=== PATIENT | male | born 1965 | race Caucasian/White ===

== ENCOUNTER 2016-06-29 17:31 | Emergency (ER) | payer OTHER ==
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
--- NOTE | 2016-06-29 21:24 | ED ORDER SUMMARY ---
..... Patient: MANI ALMARAZ OrderSheet [facility] VisitID: [id number] [place] [address] 50y, M Registration Date/Time: 06/29/2016 ORDER SHEET Weight: 93.4 kg (stated) Allergies: No Known Drug Allergy GENERAL ORDERS: CT Head wo Cont Urgent (17:42 06/29/2016 Ashley GARCIA) (Ack 17:47 Shay) (18:32 Bennie) CT Cervical Spine wo Cont Urgent (17:42 06/29/2016 Ashley GARCIA) (Ack 17:47 Shay) (18:32 Bennie) CT Thorax/Abd/Pelvis w Cont (No) (do not wait. ) Urgent (17:43 06/29/2016 Ashley GARCIA) (Ack 17:47 Shay) (18:32 Bennie) CBC w Diff Urgent (17:43 06/29/2016 Ashley GARCIA) (Ack 17:47 Shay) (19:03 DDavis R.N.) CMP Urgent (17:43 06/29/2016 Ashley GARCIA) (Ack 17:47 Shay) (19:03 DDavis R.N.) UA-Culture if indicated Urgent (17:43 06/29/2016 Ashley GARCIA) (Ack 17:47 Shay) Lipase Urgent (17:43 06/29/2016 Ashley GARCIA) (Ack 17:47 Shay) (19:03 DDavis R.N.) Urine Drug Screen Urgent (17:43 06/29/2016 Ashley GARCIA) (Ack 17:47 Shay) MEDICATION ORDERS: IV FLUIDS: IV NS : initial bolus none -, then 500 mL/hr for 2h (NOW); Urgent (17:42 06/29/2016 Ashley GARCIA) (17:45 LWhalen R.N.) Zofran IV 4 mg (NOW) (20:07 06/29/2016 Ashley GARCIA) (20:27 DDavis R.N.) Dilaudid IV 0.5 mg + 0.5 mg (NOW) (20:06/29/2016 Ashley GARCIA) (20:28 DDavis R.N.) ORDER SHEET NOTES: [Electronically signed by Mani Nielson R.N. (21:44 06/29/2016)] [Electronically signed by Erik Simon MD (01:05 07/01/2016)] [Electronically locked/signed by Mani Nielson R.N. (21:44 06/29/2016)]
--- NOTE | 2016-06-29 21:24 | ED ORDER SUMMARY ---
..... Patient: MANI ALMARAZ OrderSheet [facility] VisitID: [id number] [place] [address] 50y, M Registration Date/Time: 06/29/2016 ORDER SHEET Weight: 93.4 kg (stated) Allergies: No Known Drug Allergy GENERAL ORDERS: CT Head wo Cont Urgent (17:42 06/29/2016 Ashley GARCIA) (Ack 17:47 Shay) (18:32 Bennie) CT Cervical Spine wo Cont Urgent (17:42 06/29/2016 Ashley GARCIA) (Ack 17:47 Shay) (18:32 Bennie) CT Thorax/Abd/Pelvis w Cont (No) (do not wait. ) Urgent (17:43 06/29/2016 Ashley GARCIA) (Ack 17:47 Shay) (18:32 Bennie) CBC w Diff Urgent (17:43 06/29/2016 Ashley GARCIA) (Ack 17:47 Shay) (19:03 DDavis R.N.) CMP Urgent (17:43 06/29/2016 Ashley GARCIA) (Ack 17:47 Shay) (19:03 DDavis R.N.) UA-Culture if indicated Urgent (17:43 06/29/2016 Ashley GARCIA) (Ack 17:47 Shay) Lipase Urgent (17:43 06/29/2016 Ashley GARCIA) (Ack 17:47 Shay) (19:03 DDavis R.N.) Urine Drug Screen Urgent (17:43 06/29/2016 Ashley GARCIA) (Ack 17:47 Shay) MEDICATION ORDERS: IV FLUIDS: IV NS : initial bolus none -, then 500 mL/hr for 2h (NOW); Urgent (17:42 06/29/2016 Ashley GARCIA) (17:45 LWhalen R.N.) Zofran IV 4 mg (NOW) (20:07 06/29/2016 Ashley GARCIA) (20:27 DDavis R.N.) Dilaudid IV 0.5 mg + 0.5 mg (NOW) (20:06/29/2016 Ashley GARCIA) (20:28 DDavis R.N.) ORDER SHEET NOTES: [Electronically signed by Mani Nielson R.N. (21:44 06/29/2016)] [Electronically signed by Erik Simon MD (01:05 07/01/2016)] [Electronically locked/signed by Mani Nielson R.N. (21:44 06/29/2016)]
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
--- NOTE | 2016-07-01 01:05 | ED MED RECONCILIATION SUMMARY ---
Patient: SHARRON ALMARAZ Medication Reconciliation Report [facility] VisitID: [id number] [address] [place] [address] 50y, M Registration Date/Time: 06/29/2016 Weight: 93.4 kg Height/Length: 72 in. BMI: 28.0 ALLERGIES: No Known Drug Allergy The patient's Home Medications are listed below: NONE. The source(s) of the original Home Medication information: Not obtained. The following Medications were given to the patient in the Emergency Department: IV NS IV Fluids bolus 0, then 999 mL/hr, administered: 06/29/2016 5:45:00 PM Zofran [IVP] IVP 4 mg, administered: 06/29/2016 8:22:00 PM Dilaudid [IVP] IVP 1 mg, administered: 06/29/2016 8:24:00 PM The following Medications were prescribed to the patient: Hydrocodone/APAP take 1-2 orally every 4 hours as needed for pain. Dispense fifteen (15). No refill. -- Erik Simon MD
--- NOTE | 2016-07-01 01:05 | ED MAR SUMMARY ---
..... Medication Administration Record [facility] [address] [place] [address] Patient: SHARRON ALMARAZ Visit ID: [id number] 50y, M Weight: 93.4 kg Height/Length: 72 in BMI: 28 ALLERGIES: No Known Drug Allergy Start 17:45 06/29/2016 Silvia Israel R.N., Stop 21:32 06/29/2016 Sharron Nielson R.N. Medication Administered: IV NS (SALINE), Dose: IV Fluids over 1 hour(s), Rate: 999 mL/hr, Dispensed: 1000 mL bag, Site: #1 left AC. Medication Ordered: IV NS : initial bolus none -, then 500 mL/hr for 2h (NOW); Urgent. Given 20:22 06/29/2016 Sharron Nielson R.N. Medication Administered: ZOFRAN [IVP] (ONDANSETRON HCL), Dose: 4 mg IVP over 1 minute(s), Site: #2 right AC. Medication Ordered: Zofran IV 4 mg (NOW). Given 20:24 06/29/2016 Sharron Nielson R.N. Medication Administered: DILAUDID [IVP] (HYDROMORPHONE HCL PF), Dose: 1 mg IVP over 2 minute(s), Site: #2 right AC. Medication Ordered: Dilaudid IV 0.5 mg + 0.5 mg (NOW).
--- NOTE | 2016-07-01 01:05 | ED MAR SUMMARY ---
..... Medication Administration Record [facility] [address] [address] Patient: SHARRON ALMARAZ Visit ID: [id number] 50y, M Weight: 93.4 kg Height/Length: 72 in BMI: 28 ALLERGIES: No Known Drug Allergy Start 17:45 06/29/2016 Silvia Israel R.N., Stop 21:32 06/29/2016 Sharron Nielson R.N. Medication Administered: IV NS (SALINE), Dose: IV Fluids over 1 hour(s), Rate: 999 mL/hr, Dispensed: 1000 mL bag, Site: #1 left AC. Medication Ordered: IV NS : initial bolus none -, then 500 mL/hr for 2h (NOW); Urgent. Given 20:22 06/29/2016 Sharron Nielson R.N. Medication Administered: ZOFRAN [IVP] (ONDANSETRON HCL), Dose: 4 mg IVP over 1 minute(s), Site: #2 right AC. Medication Ordered: Zofran IV 4 mg (NOW). Given 20:24 06/29/2016 Sharron Nielson R.N. Medication Administered: DILAUDID [IVP] (HYDROMORPHONE HCL PF), Dose: 1 mg IVP over 2 minute(s), Site: #2 right AC. Medication Ordered: Dilaudid IV 0.5 mg + 0.5 mg (NOW).
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
--- NOTE | 2016-07-01 01:05 | ED MED RECONCILIATION SUMMARY ---
Patient: SHARRON ALMARAZ Medication Reconciliation Report [facility] VisitID: [id number] [address] [place] [address] 50y, M Registration Date/Time: 06/29/2016 Weight: 93.4 kg Height/Length: 72 in. BMI: 28.0 ALLERGIES: No Known Drug Allergy The patient's Home Medications are listed below: NONE. The source(s) of the original Home Medication information: Not obtained. The following Medications were given to the patient in the Emergency Department: IV NS IV Fluids bolus 0, then 999 mL/hr, administered: 06/29/2016 5:45:00 PM Zofran [IVP] IVP 4 mg, administered: 06/29/2016 8:22:00 PM Dilaudid [IVP] IVP 1 mg, administered: 06/29/2016 8:24:00 PM The following Medications were prescribed to the patient: Hydrocodone/APAP take 1-2 orally every 4 hours as needed for pain. Dispense fifteen (15). No refill. -- Erik Simon MD
== END 2016-06-29 21:35 | disposition home or self-care (01) ==
LOC: ED SRH 17:31
DX: S06.0X1A Concussion with loss of consciousness of 30 minutes or less, initial encounter (principal); S01.01XA Laceration without foreign body of scalp, initial encounter; S39.012A Strain of muscle, fascia and tendon of lower back, initial encounter; S70.01XA Contusion of right hip, initial encounter; V57.0XXA Driver of pick-up truck or van injured in collision with fixed or stationary object in nontraffic accident, initial encounter; Y93.9 Activity, unspecified; Y92.9 Unspecified place or not applicable; Y99.9 Unspecified external cause status
CPT/HCPCS: 81663; 90100; 92235; 95059